=== PATIENT | male | born 1970 | race Caucasian/White ===

== ENCOUNTER 2020-12-20 01:39 | Inpatient (IN) ==
[2020-12-20] MEDS ORDERED: SODIUM CHLORIDE 0.9% 1,000 ML IV STA (02:01)
[2020-12-20] MEDS ORDERED: HYDROmorphone 2 MG/1 ML VIAL IV STA (02:01)
[2020-12-20] MEDS ORDERED: ONDANSETRON 4 MG/2 ML VIAL IV STA (02:01)
[2020-12-20 02:20] LABS: Basophils # 0.1 10*3/uL (0.0-0.2); Basophils % 0.8 % (0.0-0.8); Eosinophils % 0.5 % (0.00-10.9); Hematocrit 48.4 VOL% (42.0-52.0); Hemoglobin 15.9 GM/DL (14.0-18.0); Immature Granulocytes % 0.3 %; Immature Granulocytes Absolute 0.02 #; Lymphocytes # 1.6 10*3/uL (1.4-4.0); Lymphocytes % 25.7 % (21.2-54.2); Mean Corpuscular HGB Conc 32.9 GM/DL (32-36); Mean Corpuscular Volume 87.7 FL (87-102); Mean Platelet Volume 10.9 FL (9.6-12.0); Monocytes % 9.6 % (1.7-12.7); Neutrophils % 63.1 % (38.7-73.9); Platelet Count 214 T/CUMM (130-400); Red Blood Count 5.52 MC/CUMM (3.8-5.5); White Blood Count 6.4 T/CUMM (4-12)
[2020-12-20 02:23] LABS: Blood, Urine Negative (Negative); Glucose,Urine (UA) Negative (Negative); Hyaline Casts,Urine 1 /LPF (0-3); Ketones,Urine Negative (Negative); Mucus,Urine Few /LPF (Occasional); Nitrite,Urine Negative (Negative); Protein,Urine Negative; RBC,Urine 3 /HPF (0-4); Squamous Epithelial Cell,Urine Occasional /HPF (0-10); Urine Appearance CLEAR (Clear); Urine Color Amber (Yellow); Urine Specific Gravity 1.026 (1.001-1.035)
[2020-12-20 02:49] LABS: Barbiturates Screen,Urine Negative (Negative); Benzodiazepines Screen,Urine Negative (Negative); Cannabinoid Screen,Urine Negative (Negative); Opiate Screen,Urine Negative (Negative); Phencyclidine Screen,Urine Negative (Negative)
[2020-12-20 02:54] LABS: Bilirubin,Urine Moderate mg/dL (Negative)
[2020-12-20 02:56] LABS: Alanine Aminotransferase 4092 U/L (16-61); Albumin 2.9 G/DL (3.4-5.0); Alkaline Phosphatase 275 U/L (45-117); Amylase 52 U/L (25-115); Aspartate Amino Transferase 1637 U/L (0-37); Blood Urea Nitrogen 18 MG/DL (7-18); Calcium 8.4 MG/DL (8.5-10.1); Carbon Dioxide 28 MMOL/L (21-32); Estimated Glom Filtration Rate 105 ML/MIN; Glucose 85 MG/DL (74-106); Osmolality,Calculated 277.5 MOS/KG (273-304); Potassium 3.8 MMOL/L (3.5-5.1); Sodium 139 MMOL/L (136-145)
[2020-12-20 03:42] LABS: Platelet Estimate Adequate
[2020-12-20] MEDS ORDERED: PIPERACILLIN/TAZOBACTAM 3,375 MG in SODIUM CHLORIDE 0.9% 100 ML IV STA (04:07)
[2020-12-20] MEDS ORDERED: ONDANSETRON 4 MG/2 ML VIAL IV PRN (05:24)
[2020-12-20] MEDS ORDERED: NICOTINE 21 MG/24 HR PATCH TRANSDERM PRN (05:24)
[2020-12-20] MEDS ORDERED: GLUCAGON 1 MG VIAL IM PRN (05:24)
[2020-12-20] MEDS ORDERED: DEXTROSE 50% 25 GM/50 ML VIAL IV PRN (05:24)
[2020-12-20] MEDS ORDERED: ACETAMINOPHEN 325 MG TABLET PO PRN (05:24)
[2020-12-20] MEDS ORDERED: MORPHINE 4 MG/1 ML VIAL IV PRN (05:24)
[2020-12-20] MEDS ORDERED: hydrALAZINE 20 MG/1 ML VIAL IV PRN (05:24)
[2020-12-20] MEDS: SODIUM CHLORIDE 0.9% 1,000 ML IV SCH ×2 (06:40→21:54)
[2020-12-20 09:21] LABS: Bilirubin,Direct 6.29 MG/DL (0.0-0.20)
[2020-12-20 09:27] LABS: INR 1.2; PT Patient Result 13.8 SECS (10.5-12.0)
[2020-12-20 10:17] LABS: Hepatitis B Core IgM Quant < 0.05 Index; Hepatitis B Surface Ag Quant < 0.10 Index; Hepatitis B Surface Ag Result Non-Reactive (NonReactive); Hepatitis C Virus Ab Quant 0.06 Index; Hepatitis C Virus Ab Result Non-Reactive (NonReactive)
[2020-12-20 10:18] LABS: HIV Antigen/Antibody Result Nonreactive (Nonreactive)
[2020-12-20 10:59] LABS: % Iron Saturation 34.6 % (18-50)
[2020-12-20] MEDS: PIPERACILLIN/TAZOBACTAM 3,375 MG in SODIUM CHLORIDE 0.9% 100 ML IV SCH ×2 (12:20→20:45)
[2020-12-20] MEDS: MORPHINE 4 MG/1 ML VIAL IV PRN (14:03)
[2020-12-21] MEDS: PIPERACILLIN/TAZOBACTAM 3,375 MG in SODIUM CHLORIDE 0.9% 100 ML IV SCH ×3 (04:16→21:32)
[2020-12-21] MEDS: SODIUM CHLORIDE 0.9% 1,000 ML IV SCH ×4 (04:23→21:32)
[2020-12-21 06:35] LABS: Basophils % 0.4 % (0.0-0.8); Eosinophils % 0.3 % (0.00-10.9); Hematocrit 46.1 VOL% (42.0-52.0); Hemoglobin 15.6 GM/DL (14.0-18.0); Immature Granulocytes % 0.6 %; Immature Granulocytes Absolute 0.05 #; Lymphocytes # 2.4 10*3/uL (1.4-4.0); Lymphocytes % 26.2 % (21.2-54.2); Mean Corpuscular HGB Conc 33.8 GM/DL (32-36); Mean Corpuscular Volume 86.7 FL (87-102); Mean Platelet Volume 11.9 FL (9.6-12.0); Monocytes % 8.3 % (1.7-12.7); Neutrophils % 64.2 % (38.7-73.9); Platelet Count 225 T/CUMM (130-400); Red Blood Count 5.32 MC/CUMM (3.8-5.5); Red Cell Distribution Width 15.4 % (9.3-17.3)
[2020-12-21 06:46] LABS: INR 1.2; PT Patient Result 13.5 SECS (10.5-12.0)
[2020-12-21 06:54] LABS: Eosinophils 2 % (0-10); Lymphocytes 21 % (20-55); Platelet Estimate Normal; Segmented Neutrophils 67 % (50-85); Total Cells Counted 100
[2020-12-21 07:12] LABS: Albumin 2.3 G/DL (3.4-5.0); Bilirubin,Total 7.2 MG/DL (0.2-1.0); Calcium 8.5 MG/DL (8.5-10.1); Osmolality,Calculated 274.7 MOS/KG (273-304); Potassium 4.3 MMOL/L (3.5-5.1); Total Protein 5.5 G/DL (6.4-8.2)
[2020-12-21] MEDS: MORPHINE 4 MG/1 ML VIAL IV PRN (23:32)
[2020-12-22 05:32] LABS: Basophils # 0.1 10*3/uL (0.0-0.2); Basophils % 0.7 % (0.0-0.8); Eosinophils # 0.1 10*3/uL (0.0-0.87); Hematocrit 43.3 VOL% (42.0-52.0); Hemoglobin 15.1 GM/DL (14.0-18.0); Immature Granulocytes % 0.4 %; Immature Granulocytes Absolute 0.03 #; Lymphocytes % 27.1 % (21.2-54.2); Mean Corpuscular HGB Conc 34.9 GM/DL (32-36); Mean Corpuscular Volume 83.9 FL (87-102); Mean Platelet Volume 11.7 FL (9.6-12.0); Monocytes % 8.3 % (1.7-12.7); Neutrophils % 62.5 % (38.7-73.9); Platelet Count 230 T/CUMM (130-400); Red Blood Count 5.16 MC/CUMM (3.8-5.5); Red Cell Distribution Width 15.4 % (9.3-17.3); White Blood Count 7.4 T/CUMM (4-12)
[2020-12-22] MEDS: PIPERACILLIN/TAZOBACTAM 3,375 MG in SODIUM CHLORIDE 0.9% 100 ML IV SCH ×3 (05:52→21:04)
[2020-12-22 06:08] LABS: Albumin 2.1 G/DL (3.4-5.0); Bilirubin,Direct 6.22 MG/DL (0.0-0.20); Bilirubin,Indirect 1.8 MG/DL (0.0-1.0); Total Protein 5.2 G/DL (6.4-8.2)
[2020-12-22 06:09] LABS: Albumin 2.2 G/DL (3.4-5.0); Bilirubin,Direct 6.15 MG/DL (0.0-0.20); Bilirubin,Total 7.8 MG/DL (0.2-1.0); Calcium 8.1 MG/DL (8.5-10.1); Potassium 3.5 MMOL/L (3.5-5.1); Total Protein 5.3 G/DL (6.4-8.2)
[2020-12-22] MEDS: MORPHINE 4 MG/1 ML VIAL IV PRN ×3 (06:17→20:01)
[2020-12-22 06:43] LABS: Platelet Estimate Normal; Schistocytes Slight
[2020-12-22] MEDS: SODIUM CHLORIDE 0.9% 1,000 ML IV SCH ×2 (13:55→16:06)
[2020-12-23] MEDS: MORPHINE 4 MG/1 ML VIAL IV PRN ×4 (00:41→23:23)
[2020-12-23] MEDS: PIPERACILLIN/TAZOBACTAM 3,375 MG in SODIUM CHLORIDE 0.9% 100 ML IV SCH ×3 (05:23→21:00)
[2020-12-23 05:44] LABS: Basophils % 0.7 % (0.0-0.8); Eosinophils # 0.1 10*3/uL (0.0-0.87); Eosinophils % 2.2 % (0.00-10.9); Hematocrit 40.6 VOL% (42.0-52.0); Hemoglobin 14.2 GM/DL (14.0-18.0); Immature Granulocytes % 0.5 %; Immature Granulocytes Absolute 0.03 #; Lymphocytes # 1.6 10*3/uL (1.4-4.0); Lymphocytes % 26.8 % (21.2-54.2); Mean Platelet Volume 11.8 FL (9.6-12.0); Monocytes % 9.5 % (1.7-12.7); Neutrophils % 60.3 % (38.7-73.9); Platelet Count 232 T/CUMM (130-400); Red Blood Count 4.89 MC/CUMM (3.8-5.5); Red Cell Distribution Width 15.4 % (9.3-17.3); White Blood Count 5.8 T/CUMM (4-12)
[2020-12-23 06:12] LABS: Bilirubin,Total 7.8 MG/DL (0.2-1.0); Calcium 7.9 MG/DL (8.5-10.1); Potassium 3.3 MMOL/L (3.5-5.1); Total Protein 4.9 G/DL (6.4-8.2)
[2020-12-23] MEDS ORDERED: POTASSIUM CHLORIDE 20 MEQ TABLET PO PRN (07:30)
[2020-12-23] MEDS ORDERED: POTASSIUM CHLORIDE RIDER 10 MEQ in PREMIX 1 EACH IV PRN (07:30)
[2020-12-23] MEDS: SODIUM CHLORIDE 0.9% 1,000 ML IV SCH ×3 (09:07→16:51)
[2020-12-23] MEDS ORDERED: POTASSIUM CHLORIDE 20 MEQ TABLET PO ONE (09:08)
[2020-12-24] MEDS: SODIUM CHLORIDE 0.9% 1,000 ML IV SCH ×2 (01:10→14:10)
[2020-12-24] MEDS: PIPERACILLIN/TAZOBACTAM 3,375 MG in SODIUM CHLORIDE 0.9% 100 ML IV SCH ×3 (05:27→21:06)
[2020-12-24 05:47] LABS: Basophils # 0.1 10*3/uL (0.0-0.2); Basophils % 0.9 % (0.0-0.8); Eosinophils # 0.1 10*3/uL (0.0-0.87); Eosinophils % 2.5 % (0.00-10.9); Hematocrit 40.5 VOL% (42.0-52.0); Hemoglobin 14.5 GM/DL (14.0-18.0); Immature Granulocytes % 0.5 %; Immature Granulocytes Absolute 0.03 #; Lymphocytes # 1.7 10*3/uL (1.4-4.0); Lymphocytes % 29.5 % (21.2-54.2); Mean Corpuscular HGB Conc 35.8 GM/DL (32-36); Mean Corpuscular Volume 83.3 FL (87-102); Monocytes % 9.1 % (1.7-12.7); Neutrophils % 57.5 % (38.7-73.9); Platelet Count 249 T/CUMM (130-400); Red Blood Count 4.86 MC/CUMM (3.8-5.5); Red Cell Distribution Width 15.8 % (9.3-17.3); White Blood Count 5.7 T/CUMM (4-12)
[2020-12-24 06:17] LABS: Albumin 1.9 G/DL (3.4-5.0); Bilirubin,Total 7.4 MG/DL (0.2-1.0); Calcium 8.1 MG/DL (8.5-10.1); Total Protein 5.2 G/DL (6.4-8.2)
[2020-12-24 06:22] LABS: Lymphocytes 26 % (20-55); Platelet Estimate Adequate; Segmented Neutrophils 65 % (50-85); Total Cells Counted 100
[2020-12-24] MEDS: MORPHINE 4 MG/1 ML VIAL IV PRN ×3 (10:16→21:05)
[2020-12-24 15:56] LABS: Alpha-1-Antitrypsin, Serum 182 mg/dL (100 - 190)
[2020-12-25] MEDS: SODIUM CHLORIDE 0.9% 1,000 ML IV SCH ×2 (05:33→06:38)
[2020-12-25] MEDS: PIPERACILLIN/TAZOBACTAM 3,375 MG in SODIUM CHLORIDE 0.9% 100 ML IV SCH (05:33)
[2020-12-25] MEDS: MORPHINE 4 MG/1 ML VIAL IV PRN (05:36)
[2020-12-25 05:50] LABS: Bilirubin,Total 7.1 MG/DL (0.2-1.0); Calcium 7.8 MG/DL (8.5-10.1); Potassium 3.5 MMOL/L (3.5-5.1); Total Protein 5.2 G/DL (6.4-8.2)
[2020-12-25] MEDS ORDERED: FUROSEMIDE 20 MG/2 ML VIAL IV ONE (10:13)
[2020-12-25 11:55] VITALS: BP 123/72
== END 2020-12-25 12:21 | disposition home or self-care (01) | DRG 441 ==
LOC: N.ED 01:39 → N.EDINP 05:24 → N.4E 06:15
PROVIDERS: ADMIT Internal Medicine; ATTEND Internal Medicine

== ENCOUNTER 2021-10-28 07:10 | Inpatient (IN) ==
[2021-10-28] MEDS ORDERED: HYDROmorphone 1 MG/1 ML SYRINGE IV STA (07:33)
[2021-10-28] MEDS ORDERED: ONDANSETRON 4 MG/2 ML VIAL IV STA (07:33)
[2021-10-28] MEDS ORDERED: SODIUM CHLORIDE 0.9% 1,000 ML IV STA (07:33)
[2021-10-28 07:43] LABS: Basophils % 0.6 % (0.0-0.8); Eosinophils # 0.3 10*3/uL (0.0-0.87); Eosinophils % 4.4 % (0.00-10.9); Hematocrit 45.8 VOL% (42.0-52.0); Immature Granulocytes % 0.1 %; Immature Granulocytes Absolute 0.01 #; Lymphocytes # 2.5 10*3/uL (1.4-4.0); Mean Corpuscular HGB Conc 32.8 GM/DL (32-36); Mean Platelet Volume 10.2 FL (9.6-12.0); Monocytes % 9.2 % (1.7-12.7); Neutrophils % 49.7 % (38.7-73.9); Platelet Count 314 T/CUMM (130-400); Red Blood Count 4.98 MC/CUMM (3.8-5.5); Red Cell Distribution Width 13.1 % (9.3-17.3)
[2021-10-28 07:51] LABS: Calcium 8.8 MG/DL (8.5-10.1); Osmolality,Calculated 281.5 MOS/KG (273-304)
[2021-10-28] MEDS ORDERED: ONDANSETRON 4 MG/2 ML VIAL IV PRN (11:25)
[2021-10-28] MEDS ORDERED: BISACODYL 5 MG TABLET PO PRN (11:25)
[2021-10-28] MEDS ORDERED: HYDROmorphone 1 MG/1 ML SYRINGE IV PRN ×2 (11:25)
[2021-10-28] MEDS ORDERED: ACETAMINOPHEN 325 MG TABLET PO PRN (11:25)
[2021-10-28] MEDS: KETOROLAC 30 MG/1 ML VIAL IV SCH ×3 (12:17→23:23)
[2021-10-28] MEDS: LACTATED RINGERS 1,000 ML IV SCH ×2 (12:30→18:04)
[2021-10-28] MEDS: cefOXitin 1,000 MG in SODIUM CHLORIDE 0.9% 100 ML IV SCH ×2 (12:30→20:47)
[2021-10-29] MEDS: cefOXitin 1,000 MG in SODIUM CHLORIDE 0.9% 100 ML IV SCH ×2 (03:37→14:22)
[2021-10-29] MEDS: LACTATED RINGERS 1,000 ML IV SCH ×3 (03:37→14:22)
[2021-10-29] MEDS: KETOROLAC 30 MG/1 ML VIAL IV SCH ×2 (05:27→14:29)
[2021-10-29 05:42] LABS: Basophils # 0.1 10*3/uL (0.0-0.2); Basophils % 0.6 % (0.0-0.8); Eosinophils # 0.3 10*3/uL (0.0-0.87); Eosinophils % 3.4 % (0.00-10.9); Hematocrit 42.8 VOL% (42.0-52.0); Hemoglobin 13.9 GM/DL (14.0-18.0); Immature Granulocytes % 0.3 %; Immature Granulocytes Absolute 0.02 #; Lymphocytes % 26.5 % (21.2-54.2); Mean Corpuscular HGB Conc 32.5 GM/DL (32-36); Mean Corpuscular Volume 91.1 FL (87-102); Monocytes % 7.1 % (1.7-12.7); Neutrophils % 62.1 % (38.7-73.9); Platelet Count 254 T/CUMM (130-400); Red Cell Distribution Width 12.8 % (9.3-17.3); White Blood Count 7.7 T/CUMM (4-12)
[2021-10-29 06:01] LABS: Albumin 2.5 G/DL (3.4-5.0); Bilirubin,Total 0.4 MG/DL (0.20-1.00); Calcium 8.2 MG/DL (8.5-10.1); Osmolality,Calculated 280.5 MOS/KG (273-304); Potassium 3.7 MMOL/L (3.5-5.1); Total Protein 5.6 G/DL (6.4-8.2)
[2021-10-29] MEDS ORDERED: PANTOPRAZOLE 40 MG TABLET PO SCH (09:00)
[2021-10-29] MEDS ORDERED: propofoL 200 MG/20 ML VIAL IV ONE (11:27)
[2021-10-29] MEDS ORDERED: MIDAZOLAM 2 MG/2 ML VIAL ONE (11:27)
[2021-10-29] MEDS ORDERED: fentaNYL 100 MCG/2 ML VIAL ONE ×2 (11:27→12:15)
[2021-10-29] MEDS ORDERED: LIDOCAINE 2% 5 ML VIAL ONE (11:27)
[2021-10-29] MEDS ORDERED: SEVOFLURANE 1 UNIT/15 MINUTE INH ONE (11:27)
[2021-10-29] MEDS ORDERED: LIDOCAINE 1%/EPI INJ 20 ML VIAL ONE (11:35)
[2021-10-29] MEDS ORDERED: BUPIVACAINE MPF 0.25% 30 ML VIAL ONE (11:35)
[2021-10-29] MEDS ORDERED: ACETAMINOPHEN INJ 1,000 MG/100 ML VIAL IV ONE (12:16)
[2021-10-29] MEDS ORDERED: KETOROLAC 30 MG/1 ML VIAL ONE (12:16)
[2021-10-29] MEDS ORDERED: PHENYLEPHRINE 1 MG/10 ML SYRINGE IV ONE (12:20)
[2021-10-29] MEDS ORDERED: LACTATED RINGERS 1,000 ML IV ONE (12:20)
[2021-10-29] MEDS ORDERED: TISSUE ADHESIVE 1 EACH APPLICATOR TOP ONE (12:33)
[2021-10-29 13:53] VITALS: BP 120/84
== END 2021-10-29 16:37 | disposition home or self-care (01) | DRG 352 ==
LOC: EDBD → EDUNIT# → N.ED 07:10 → N.EDINP 11:25 → N.3E 12:05
PROVIDERS: ADMIT Surgery; ATTEND Surgery